=== PATIENT | male | born 1995 | race Caucasian/White ===

== ENCOUNTER 2017-03-24 01:31 | Emergency (ER) | payer SELFPAY ==
[~2017-03-24] VITALS: Ht 180.3 cm; Wt 96.0 kg
[~2017-03-24 01:31] MED LIST: AUGMENTIN875 MG PO; HYDROCODON-ACE1 EAC7 PO; OXYCODONE HCL5 MG PO
[2017-03-24 03:35] VITALS: BP 146/98
== END 2017-03-24 03:36 | disposition home or self-care (01) ==
LOC: EME 01:31
PROC: 0HQEXZZ Repair Left Lower Arm Skin, External Approach (ICD-10-PCS; principal; 2017-03-24)
DX: S51.812A Laceration without foreign body of left forearm, initial encounter (principal); W25.XXXA Contact with sharp glass, initial encounter; F17.200 Nicotine dependence, unspecified, uncomplicated
CPT/HCPCS: 99281; 99283

== ENCOUNTER 2017-04-03 20:09 | Emergency (ER) | payer SELFPAY ==
[~2017-04-03] VITALS: Ht 177.8 cm; Wt 94.8 kg
[2017-04-03 21:09] VITALS: BP 138/80
== END 2017-04-03 21:10 | disposition home or self-care (01) ==
LOC: EME 20:09
DX: S51.812D Laceration without foreign body of left forearm, subsequent encounter (principal); Z72.0 Tobacco use
CPT/HCPCS: 99281; 99284